=== PATIENT | male | born 1975 | race Caucasian/White ===

== ENCOUNTER 2019-06-09 09:15 | Emergency (ER) | payer OTHER ==
[2019-06-09] MEDS ORDERED: LIDOCAINE 1% Multi-Dose 20 ML VIAL. IJ ONE (09:45)
[2019-06-09] MEDS ORDERED: CEPH-264 PO (10:19)
--- NOTE | 2019-06-09 10:20 | PHYS DOC ---
Adult General Chief Complaint Chief Complaint: LACERATION/AVULSION [facility] Social male presents with left thumb laceration. He was using a edge grinder cutting metal when it slipped and he lacerated the left thumb. It is about 2 cm in length. He put direct pressure on it, but continued to bleed so he knew he n eeded to come the emergency room. The patient's last tetanus was updated 1 year ago for another injury. He denies any other injuries. Review of Systems Review of Systems Constitutional: Denies fever or chills [] Eyes: Denies change in visual acuity, redness, or eye pain [] HENT: Denies nasal congestion or sore throat [] Respiratory: Denies cough or shortness of breath [] Cardiovascular: No additional information not addressed in HPI [] GI: Denies abdominal pain, nausea, vomiting, bloody stools or diarrhea [] : Denies dysuria or hematuria [] Musculoskeletal: Denies back pain or joint pain [] Integument: Laceration of the left thumb[] Neurologic: Denies headache, focal weakness or sensory changes [] Endocrine: Denies polyuria or polydipsia [] All other systems were reviewed and found to be within normal limits, except as documented in this note. Current Medications Current Medications Current Medications Medications (Trade) Dose Ordered Sig/Ivory Start Time Stop Time Status Last Admin Dose Admin Lidocaine HCl 20 ml 1X ONCE 06/09/19 09:45 06/09/19 10:02 DC Allergies Allergies Allergies Coded Allergies Type Severity Reaction Last Updated Verified No Known Drug Allergies 06/09/19 No Physical Exam Physical Exam Constitutional: Well developed, well nourished, no acute distress, non-toxic appearance. [] HENT: Normocephalic, atraumatic, bilateral external ears normal, oropharynx moist, no oral exudates, nose normal. [] Eyes: PERRLA, EOMI, conjunctiva normal, no discharge. [] Neck: Normal range of motion, no tenderness, supple, no stridor. [] Cardiovascular:Heart rate regular rhythm, no murmur [] Lungs & Thorax: Bilateral breath sounds clear to auscultation [] Abdomen: Bowel sounds normal, soft, no tenderness, no masses, no pulsatile masses. [] Skin: 2.5 cm laceration of the left thumb. Small arterial bleed.[] Back: No tenderness, no CVA tenderness. [] Extremities: No tenderness, no cyanosis, no clubbing, ROM intact, no edema. [] Neurologic: Alert and oriented X 3, normal motor function, normal sensory function, no focal deficits noted. [] Psychologic: Affect normal, judgement normal, mood normal. [] EKG EKG [] Radiology/Procedures Radiology/Procedures [] Course & Med Decision Making Course & Med Decision Making Pertinent Labs and Imaging studies reviewed. (See chart for details) The patient a left thumb laceration. I was able to repair with sutures. See note below for details. His tetanus is up-to-date. Given the nature of the wound, I will cover him with Keflex for 7 days. He is stable for discharge at this time. [] Dragon Disclaimer Dragon Disclaimer This electronic medical record was generated, in whole or in part, using a voice recognition dictation system. Laceration Repair Lac Repair Indication: []2.5 cm linear laceration of the left thumb with obvious foreign bodies. Procedure: I obtained verbal consent from the patient for suture repair of his left thumb laceration. The wound was thoroughly cleansed with normal saline and Hibiclens solution. I anesthetized the wound with 1% lidocaine. A total of 3 mL was used. After good anesthesia was achieved, further irrigation was performed. I manually removed pieces of metal or stone from the wound. The wound was explored to its base. Has many foreign bodies as I could see were removed. I then repaired the wound with 4 4-0 Ethilon sutures in an interrupted fashion. There is good skin approximation. Bleeding was controlled. A dressing was applied. Total repaired wound length: 0.5 cm. Other Items: None The patient tolerated the procedure well. Complications: Foreign bodies were removed Departure Departure: Impression: Primary Impression: Laceration of left thumb Disposition: HOME, SELF-CARE Condition: IMPROVED Referrals: PCP,NO (PCP) Patient Instructions: Laceration Care, Adult, [id number] Script[facility] Cephalexin (KEFLEX) 500 Mg Capsule 1 CAP PO TID for infection prophylaxis for 7 Days, #21 CAP 0 Refills Prov: HAGERIRA DO 06/09/19 Problem Qualifiers Primary Impression: Laceration of left thumb Encounter type: initial encounter Damage to nail status: without damage Foreign body presence: with foreign body Qualified Codes: S61.022A - Laceration with foreign body of left thumb without damage to nail, initial encounter IRA HAGER DO Jun 09, 2019 10:20
== END 2019-06-09 10:36 | disposition home or self-care (01) ==
LOC: ER 09:15
DX: S61.012A Laceration without foreign body of left thumb without damage to nail, initial encounter (principal); W26.8XXA Contact with other sharp object(s), not elsewhere classified, initial encounter; Y93.89 Activity, other specified; Y92.89 Other specified places as the place of occurrence of the external cause; Y99.8 Other external cause status
CPT/HCPCS: 12041; 99284

== ENCOUNTER 2019-06-19 14:33 | Emergency (ER) | payer OTHER ==
[2019-06-19 14:33] VITALS: BP 121/63
[~2019-06-19 14:33] MED LIST: CEPH-264 PO
--- NOTE | 2019-06-19 15:22 | PHYS DOC ---
Past History Past Medical History: No Pertinent History Past Surgical History: No Surgical History Alcohol Use: None Drug Use: None Adult General Chief Complaint Chief Complaint: SUTURE/STAPLE REMOVAL HPI HPI Patient is a 44-year-old male with suture removal no complaints Allergies Allergies Allergies Coded Allergies Type Severity Reaction Last Updated Verified No Known Drug Allergies 06/09/19 No Physical Exam Physical Exam Constitutional: Well developed, well nourished, no acute distress, non-toxic appearance. [] HENT: Normocephalic, atraumatic, bilateral external ears normal, oropharynx moist, no oral exudates, nose normal. [] Extremities: Well-healed laceration on the affected thumb no signs of infection or induration EKG EKG [] Radiology/Procedures Radiology/Procedures [] Course & Med Decision Making Course & Med Decision Making Pertinent Labs and Imaging studies reviewed. (See chart for details) []Sutures removed by staff without difficulty no signs of infection clinically Dragon Disclaimer Dragon Disclaimer This electronic medical record was generated, in whole or in part, using a voice recognition dictation system. Departure Departure: Impression: Primary Impression: Visit for suture removal Disposition: 01 HOME, SELF-CARE Condition: STABLE Patient Instructions: Suture Removal-Brief MIKAEL RAMOS MD Jun 19, 2019 15:22
== END 2019-06-19 15:03 | disposition home or self-care (01) ==
LOC: ER 14:33
DX: S61.012D Laceration without foreign body of left thumb without damage to nail, subsequent encounter (principal); X58.XXXD Exposure to other specified factors, subsequent encounter
CPT/HCPCS: 99281